=== PATIENT | male | born 1950 | race Two or more races ===

== ENCOUNTER 2023-05-22 08:00 | Inpatient (IN) | payer OTHER ==
[~2023-05-22] VITALS: Ht 167.6 cm; Wt 77.1 kg
[2023-05-22] MEDS ORDERED: VERAPAMIL ER240 MG PO (09:43)
[2023-05-22] MEDS ORDERED: VERELAN PM100 MG (09:44)
[2023-05-22 09:45] LABS: PH,URINE 7.5 (5.0-8.0); URINE APPEARANCE Clear; URINE BILIRRUBIN Negative (NEGATIVE); URINE COLOR Yellow; URINE GLUCOSE Negative (NEGATIVE); URINE LEUKOCYTE Moderate; URINE NITRATE Negative; URINE PROTEIN Negative (NEGATIVE); URINE UROBILINOGEN 0.2 E.U./dl
[2023-05-22] MEDS ORDERED: ZESTRIL5 MG (09:45)
[2023-05-22 09:49] LABS: URINE BACTERIA 277.1 uL (0.0-1933); URINE RBC 7.9 uL (0.0-20.8); URINE WBC 159.6 uL (0.0-23.2)
[2023-05-22 09:58] LABS: HEMATOCRIT 40.7 % (39.0-48.0); HEMOGLOBIN 13.8 g/dL (13-16.00); MEAN CELL VOLUME 88.1 fL (80.0-100.00); MEAN CORPUSCULAR HEMOGLOBIN 29.8 pg (27.00-32.0); MEAN CORPUSCULAR HGB CONC 33.8 g/dl (32.0-36.0); PLATELET COUNT 371 K/uL (150-450); RED BLOOD COUNT 4.62 M/uL (4.00-6.00); RED CELL DISTRIBUTION WIDTH 13.9 % (11.5-14.5)
[2023-05-22 10:13] LABS: URINE BLOOD TRACE; URINE EPITHELIAL CELLS 1.2 uL (0.0-38.8)
[2023-05-22 10:45] LABS: ALBUMIN 4.3 gm/dL (3.4-5.0); BILIRUBIN TOTAL 0.73 mg/dL (0.3-1.2); CREATININE SERUM 0.74 mg/dL (0.70-1.30); GFR 103.68; GLOBULINA 3.2 G/DL (2.4-3.5); POTASSIUM 3.74 mEq/L (3.5-5.1); TOTAL PROTEIN 7.5 gm/dL (6.4-8.2)
[2023-05-22 10:47] LABS: INR 1.04; PARTIAL THROMBOPLASTIN TIME 28.5 SECONDS (22.0-34.0); PROTHROMBIN TIME 10.9 SECONDS (9.0-11.5)
[2023-06-02] MEDS ORDERED: CEFAZOLIN SODIUM 1,000 MG VIAL ONE ×3 (10:43→18:49)
[2023-06-02] MEDS ORDERED: VANCOMYCIN HCL 1,000 MG VIAL ONE ×2 (12:37→13:11)
[2023-06-02] MEDS ORDERED: LIDOCAINE HCL 1%/Epi 20ML VIAL IJ ONE (14:04)
[2023-06-02] MEDS ORDERED: BUPIVACAINE HCL/PF 0.5% 30ML ML ONE (14:04)
[2023-06-02] MEDS ORDERED: KETOROLAC TROMETHAMINE 60 MG VIAL IM ONE ×3 (14:04→18:49)
[2023-06-02] MEDS ORDERED: TRANEXAMIC ACID 100MG/1ML (1000MG) AMPUL IV ONE ×2 (14:04→17:00)
[2023-06-02] MEDS ORDERED: VANCOMYCIN HCL 1,000 MG VIAL IR SCH (14:15)
[2023-06-02] MEDS ORDERED: TRANEXAMIC ACID 100MG/1ML (1000MG) AMPUL IV SCH ×2 (14:15)
[2023-06-02] MEDS ORDERED: KETOROLAC TROMETHAMINE 60 MG VIAL IM SCH (14:15)
[2023-06-02] MEDS ORDERED: MORPHINE SULFATE 4 MG/ML CARTRIDGE IV SCH (14:15)
[2023-06-02] MEDS ORDERED: CEFAZOLIN SODIUM 1,000 MG VIAL IV SCH ×2 (14:15→18:00)
[2023-06-02] MEDS ORDERED: BUPIVACAINE HCL/PF 0.5% 1ML IJ SCH (14:15)
[2023-06-02] MEDS ORDERED: LIDOCAINE HCL 1%/Epi 20ML VIAL IJ SCH (14:15)
[2023-06-02] MEDS ORDERED: POVIDONE-IODINE 3 EA MED..SWAB TOP ONE (15:37)
[2023-06-02] MEDS ORDERED: POVIDONE-IODINE 118 ML BOTT TOP ONE (15:37)
[2023-06-02] MEDS ORDERED: ONDANSETRON HCL 2 MG/ML VIAL IV PRN (16:30)
[2023-06-02] MEDS ORDERED: MORPHINE SULFATE 4 MG/ML CARTRIDGE IV PRN (16:30)
[2023-06-02] MEDS ORDERED: SODIUM CHLORIDE 0.45 % 1,000 ML IV SCH (16:30)
[2023-06-02] MEDS ORDERED: MORPHINE SULFATE 2 MG/ML CARTRIDGE IV NR (16:30)
[2023-06-02] MEDS ORDERED: BUPIVACAINE HCL 30 ML VIAL IJ ONE (17:00)
[2023-06-02] MEDS ORDERED: LIDOCAINE HCL/EPINEPHRINE 10MG/ML 1% 50ML IJ ONE (17:00)
[2023-06-02] MEDS ORDERED: VERAPAMIL HCL 80 MG TABLET PO SCH (17:00)
[2023-06-02] MEDS ORDERED: CEFAZOLIN SODIUM 1,000 MG VIAL IV ONE (17:00)
[2023-06-02] MEDS ORDERED: MORPHINE SULFATE 4 MG/ML VIAL IV ONE (17:00)
[2023-06-02 20:06] LABS: HEMATOCRIT 35.5 % (39.0-48.0); HEMOGLOBIN 11.9 g/dL (13-16.00); RED BLOOD COUNT 3.95 M/uL (4.00-6.00)
[2023-06-02] MEDS ORDERED: GENTAMICIN SULFATE 40 MG/ML VIAL IV SCH (21:00)
[2023-06-03 05:21] LABS: HEMATOCRIT 32.3 % (39.0-48.0); MEAN CELL VOLUME 90.3 fL (80.0-100.00); MEAN CORPUSCULAR HGB CONC 33.7 g/dl (32.0-36.0); PLATELET COUNT 244 K/uL (150-450); RED BLOOD COUNT 3.58 M/uL (4.00-6.00); RED CELL DISTRIBUTION WIDTH 13.2 % (11.5-14.5)
[2023-06-03 05:25] LABS: HEMOGLOBIN 10.9 g/dL (13-16.00); MEAN CORPUSCULAR HEMOGLOBIN 30.4 pg (27.00-32.0)
[2023-06-03] MEDS ORDERED: OxyCODONE HCL/APAP UD (PERCOCET) PO PRN (08:15)
[2023-06-03] MEDS ORDERED: RIVAROXABAN 10 MG TAB PO SCH (09:00)
[2023-06-03] MEDS ORDERED: BACITRACIN 28.35 GM OINT.TUBE TOP SCH (09:00)
[2023-06-03] MEDS ORDERED: SENNA/DOCUSATE SODIUM 1 TAB TABLET PO SCH (09:00)
[2023-06-03] MEDS ORDERED: OxyCODONE HCL ER 10MG TAB (OxyCONTIN) PO SCH (09:00)
[2023-06-03] MEDS ORDERED: LISINOPRIL 5 MG TABLET PO SCH (09:00)
[2023-06-03] MEDS ORDERED: VERAPAMIL HCL 240 MG TABLET.SA PO SCH (09:00)
[2023-06-03] MEDS ORDERED: IRON FUM,PS/FOLIC/BCOMP,C NO.9 1 CAP CAPSULE PO SCH (09:00)
[2023-06-04 05:31] LABS: HEMATOCRIT 31.4 % (39.0-48.0); HEMOGLOBIN 10.8 g/dL (13-16.00); MEAN CELL VOLUME 89.5 fL (80.0-100.00); MEAN CORPUSCULAR HEMOGLOBIN 30.7 pg (27.00-32.0); MEAN CORPUSCULAR HGB CONC 34.2 g/dl (32.0-36.0); PLATELET COUNT 248 K/uL (150-450); RED BLOOD COUNT 3.51 M/uL (4.00-6.00); RED CELL DISTRIBUTION WIDTH 13.2 % (11.5-14.5)
[2023-06-04] MEDS ORDERED: OXYC1TAB9 PO (06:39)
[2023-06-04] MEDS ORDERED: BACTRIM DS TAB1 EACH PO (06:39)
[2023-06-04] MEDS ORDERED: INTEGRA PLUS C1 EACH PO (06:39)
[2023-06-04] MEDS ORDERED: XARELTO10 MG PO (06:39)
== END 2023-06-04 13:28 | DRG 470 ==
LOC: SURH 05-29 08:00 → O/R 06-02 07:21 → SURG 06-02 18:33
PROVIDERS: ADMIT Orthopaedic Surgery Sports Medicine; ATTEND Orthopaedic Surgery Sports Medicine
PROC: 0SRB0JA Replacement of Left Hip Joint with Synthetic Substitute, Uncemented, Open Approach (ICD-10-PCS; principal; 2023-06-02 10:00)
DX: M16.12 Unilateral primary osteoarthritis, left hip (principal); I10 Essential (primary) hypertension; E03.9 Hypothyroidism, unspecified; Z20.822 Contact with and (suspected) exposure to COVID-19

== ENCOUNTER 2023-06-16 21:54 | Emergency (ER) | payer OTHER ==
[~2023-06-16] VITALS: Ht 165.1 cm; Wt 76.2 kg
[~2023-06-16 21:54] MED LIST: BACTRIM DS TAB1 EACH PO; INTEGRA PLUS C1 EACH PO; OXYC1TAB9 PO; VERAPAMIL ER240 MG PO; VERELAN PM100 MG; XARELTO10 MG PO; ZESTRIL5 MG
[2023-06-17] MEDS ORDERED: OxyCODONE HCL/APAP UD (PERCOCET) PO STA (04:09)
[2023-06-17] MEDS ORDERED: KETOROLAC TROMETHAMINE 60 MG VIAL IM STA (04:09)
[2023-06-17 05:28] LABS: HEMATOCRIT 30.6 % (39.0-48.0); HEMOGLOBIN 10.4 g/dL (13-16.00); MEAN CELL VOLUME 91.1 fL (80.0-100.00); MEAN CORPUSCULAR HEMOGLOBIN 30.9 pg (27.00-32.0); PLATELET COUNT 596 K/uL (150-450); RED BLOOD COUNT 3.36 M/uL (4.00-6.00); RED CELL DISTRIBUTION WIDTH 14.3 % (11.5-14.5)
[2023-06-17] MEDS ORDERED: LISINOPRIL40 MG PO (13:48)
[2023-06-17] MEDS ORDERED: SYNTHROID137 MCG PO (13:48)
== END 2023-06-17 07:48 | disposition home or self-care (01) ==
LOC: ER 21:54
DX: G89.18 Other acute postprocedural pain (principal); Z91.041 Radiographic dye allergy status
CPT/HCPCS: 36415; 96372; 99282; J1885

== ENCOUNTER 2023-06-17 12:10 | Inpatient (IN) | payer OTHER ==
[~2023-06-17] VITALS: Ht 167.6 cm; Wt 76.2 kg
[2023-06-17] MEDS ORDERED: LISINOPRIL40 MG PO (13:48)
[2023-06-17] MEDS ORDERED: SYNTHROID137 MCG PO (13:48)
[2023-06-17 14:56] LABS: HEMOGLOBIN 11.1 g/dL (13-16.00); MEAN CELL VOLUME 89.8 fL (80.0-100.00); MEAN CORPUSCULAR HEMOGLOBIN 30.1 pg (27.00-32.0); MEAN CORPUSCULAR HGB CONC 33.5 g/dl (32.0-36.0); RED BLOOD COUNT 3.67 M/uL (4.00-6.00)
[2023-06-17 14:57] LABS: PLATELET COUNT 681 K/uL (150-450)
[2023-06-17 15:14] LABS: CALCIUM 9.9 mg/dL (8.5-10.1); CREATININE SERUM 1.33 mg/dL (0.70-1.30); GFR 52.7; POTASSIUM 4.25 mEq/L (3.5-5.1)
[2023-06-17 15:23] LABS: INR 1.04; PARTIAL THROMBOPLASTIN TIME 28.1 SECONDS (22.0-34.0); PROTHROMBIN TIME 10.9 SECONDS (9.0-11.5)
[2023-06-17] MEDS ORDERED: VERAPAMIL HCL 80 MG TABLET PO SCH (20:14)
[2023-06-17] MEDS ORDERED: PROMETHAZINE HCL 50 MG/ML AMPUL IM PRN (20:15)
[2023-06-17] MEDS ORDERED: MEPERIDINE HCL/PF 50 MG/ML VIAL IM PRN (20:15)
[2023-06-17] MEDS ORDERED: LISINOPRIL 40 MG TABLET PO SCH (20:15)
[2023-06-17] MEDS ORDERED: 0.9 % SODIUM CHLORIDE 1,000 ML IV SCH (20:15)
[2023-06-17] MEDS ORDERED: ENOXAPARIN SODIUM 30 MG/0.3 ML SYRINGE SUBCUTANEO ONE (20:30)
[2023-06-17] MEDS ORDERED: FAMOtidine 20 MG TABLET PO SCH (21:00)
[2023-06-17 21:29] LABS: INR 1.06; PARTIAL THROMBOPLASTIN TIME 28.1 SECONDS (22.0-34.0); PROTHROMBIN TIME 11.1 SECONDS (9.0-11.5)
[2023-06-17 22:18] LABS: URINE APPEARANCE Clear; URINE BILIRRUBIN Negative (NEGATIVE); URINE BLOOD Small; URINE COLOR Yellow; URINE GLUCOSE Negative (NEGATIVE); URINE LEUKOCYTE Negative; URINE NITRATE Negative; URINE PROTEIN Negative (NEGATIVE)
[2023-06-17 22:19] LABS: URINE BACTERIA 31.4 uL (0.0-1933); URINE EPITHELIAL CELLS 2.6 uL (0.0-38.8); URINE RBC 99.4 uL (0.0-20.8); URINE WBC 5.4 uL (0.0-23.2)
[2023-06-18] MEDS ORDERED: VANCOMYCIN HCL 1,000 MG VIAL IV SCH (09:00)
[2023-06-18] MEDS ORDERED: CEFEPIME HCL 2,000 MG VIAL IV SCH (13:36)
[2023-06-18 14:49] LABS: URINE APPEARANCE Clear; URINE BILIRRUBIN Negative (NEGATIVE); URINE BLOOD Moderate; URINE COLOR Yellow; URINE GLUCOSE Negative (NEGATIVE); URINE LEUKOCYTE Small; URINE NITRATE Negative; URINE PROTEIN Negative (NEGATIVE); URINE UROBILINOGEN 0.2 E.U./dl
[2023-06-18 14:53] LABS: URINE EPITHELIAL CELLS 2.6 uL (0.0-38.8); URINE RBC 149.4 uL (0.0-20.8); URINE WBC 33.5 uL (0.0-23.2)
[2023-06-18] MEDS ORDERED: VERAPAMIL HCL 80 MG TABLET PO SCH (17:00)
[2023-06-18] MEDS ORDERED: VANCOMYCIN HCL 1,000 MG VIAL ONE ×4 (19:00→20:39)
[2023-06-18] MEDS ORDERED: BUPIVACAINE HCL/PF 0.25% 30ML VIAL InF ONE (19:00)
[2023-06-18] MEDS ORDERED: LIDOCAINE HCL 1%/Epi 20ML VIAL IJ ONE ×2 (19:00→22:15)
[2023-06-18] MEDS ORDERED: POVIDONE-IODINE 118 ML BOTT TOP ONE ×2 (19:04→21:30)
[2023-06-18] MEDS ORDERED: ISOPROPYL ALCOHOL 30 ML OUNCE TOP ONE (21:30)
[2023-06-18] MEDS ORDERED: VANCOMYCIN HCL 1,000 MG VIAL IR ONE (21:30)
[2023-06-18] MEDS ORDERED: BUPIVACAINE HCL 30 ML VIAL IJ ONE (22:00)
[2023-06-18] MEDS ORDERED: ONDANSETRON HCL 2 MG/ML VIAL IV PRN (22:15)
[2023-06-18] MEDS ORDERED: MORPHINE SULFATE 4 MG/ML VIAL IV ONE (22:15)
[2023-06-18] MEDS ORDERED: MORPHINE SULFATE 4 MG/ML VIAL IV PRN (22:15)
[2023-06-18] MEDS ORDERED: SODIUM CHLORIDE 0.45 % 1,000 ML IV SCH (22:15)
[2023-06-18 23:23] LABS: HEMATOCRIT 30.2 % (39.0-48.0); RED BLOOD COUNT 3.29 M/uL (4.00-6.00)
[2023-06-18 23:24] LABS: HEMOGLOBIN 10.1 g/dL (13-16.00)
[2023-06-19 06:07] LABS: HEMOGLOBIN 9.2 g/dL (13-16.00); MEAN CELL VOLUME 90.9 fL (80.0-100.00); MEAN CORPUSCULAR HGB CONC 34.1 g/dl (32.0-36.0); PLATELET COUNT 531 K/uL (150-450); RED BLOOD COUNT 2.97 M/uL (4.00-6.00); RED CELL DISTRIBUTION WIDTH 14.2 % (11.5-14.5)
[2023-06-19 06:46] LABS: ALBUMIN 2.7 gm/dL (3.4-5.0); BILIRUBIN TOTAL 0.73 mg/dL (0.3-1.2); CALCIUM 8.6 mg/dL (8.5-10.1); CREATININE SERUM 0.64 mg/dL (0.70-1.30); GFR 122.59; GLOBULINA 2.7 G/DL (2.4-3.5); MAGNESIUM 1.8 mg/dL (1.8-2.4); PHOSPHOROUS 3.4 mg/dL (2.5-4.9); POTASSIUM 4.59 mEq/L (3.5-5.1); TOTAL PROTEIN 5.4 gm/dL (6.4-8.2)
[2023-06-19 06:47] LABS: C-REACTIVE PROTEIN 5.09 MG/DL (0.00-0.29)
[2023-06-19] MEDS ORDERED: OxyCODONE HCL/APAP UD (PERCOCET) PO PRN (07:30)
[2023-06-19] MEDS ORDERED: SENNA/DOCUSATE SODIUM 1 TAB TABLET PO SCH (09:00)
[2023-06-19] MEDS ORDERED: BACITRACIN 28.35 GM OINT.TUBE TOP SCH (09:00)
[2023-06-19] MEDS ORDERED: IRON FUM,PS/FOLIC/BCOMP,C NO.9 1 CAP CAPSULE PO SCH (09:00)
[2023-06-19] MEDS ORDERED: OxyCODONE HCL ER 10MG TAB (OxyCONTIN) PO SCH (09:00)
[2023-06-19] MEDS ORDERED: RIVAROXABAN 10 MG TAB PO SCH (09:00)
[2023-06-19] MEDS ORDERED: LACTULOSE 20 G/30 ML BLIST.PACK PO ONE (12:15)
[2023-06-19] MEDS ORDERED: MINERAL OIL 30 ML BLIST.PACK PO ONE (12:15)
[2023-06-19] MEDS ORDERED: MAGNESIUM HYDROXIDE 30 ML BLIST.PACK PO ONE (12:15)
[2023-06-19] MEDS ORDERED: CEFTRIAXONE SODIUM 2,000 MG VIAL IV SCH (17:00)
[2023-06-20 05:39] LABS: HEMATOCRIT 25.5 % (39.0-48.0); MEAN CELL VOLUME 90.3 fL (80.0-100.00); PLATELET COUNT 495 K/uL (150-450); RED BLOOD COUNT 2.82 M/uL (4.00-6.00); RED CELL DISTRIBUTION WIDTH 14.1 % (11.5-14.5)
[2023-06-20 05:40] LABS: HEMOGLOBIN 8.7 g/dL (13-16.00); MEAN CORPUSCULAR HEMOGLOBIN 30.8 pg (27.00-32.0)
[2023-06-20 05:58] LABS: ALBUMIN 2.5 gm/dL (3.4-5.0); BILIRUBIN TOTAL 0.4 mg/dL (0.3-1.2); CALCIUM 8.5 mg/dL (8.5-10.1); CREATININE SERUM 0.56 mg/dL (0.70-1.30); GFR 143.01; GLOBULINA 2.8 G/DL (2.4-3.5); PHOSPHOROUS 2.4 mg/dL (2.5-4.9); POTASSIUM 4.3 mEq/L (3.5-5.1); TOTAL PROTEIN 5.3 gm/dL (6.4-8.2)
[2023-06-20] MEDS ORDERED: LEVOTHYROXINE SODIUM 137 MCG TABLET PO SCH (06:00)
[2023-06-20 06:15] LABS: C-REACTIVE PROTEIN 9.93 MG/DL (0.00-0.29)
[2023-06-20] MEDS ORDERED: FUROsemide 20 MG/2 ML VIAL IV SCH (08:45)
[2023-06-21] MEDS ORDERED: CIPROFLOXACIN IN 5 % DEXTROSE 400 MG/200 ML PIGGYBAG IV SCH (01:00)
[2023-06-21 02:23] LABS: URINE APPEARANCE Clear; URINE BILIRRUBIN Negative (NEGATIVE); URINE BLOOD Negative; URINE COLOR Yellow; URINE GLUCOSE Negative (NEGATIVE); URINE LEUKOCYTE Negative; URINE NITRATE Negative; URINE PROTEIN Negative (NEGATIVE)
[2023-06-21 02:54] LABS: URINE BACTERIA 8.8 uL (0.0-1933); URINE EPITHELIAL CELLS 1.5 uL (0.0-38.8); URINE RBC 5.6 uL (0.0-20.8); URINE WBC 3.8 uL (0.0-23.2)
[2023-06-21] MEDS ORDERED: LACTOBACILLUS ACIDOPHILUS 1 CAP CAP PO SCH (09:00)
[2023-06-22 03:02] LABS: HEMOGLOBIN 11.7 g/dL (13-16.00); MEAN CELL VOLUME 89.4 fL (80.0-100.00); MEAN CORPUSCULAR HEMOGLOBIN 31.5 pg (27.00-32.0); MEAN CORPUSCULAR HGB CONC 35.3 g/dl (32.0-36.0); PLATELET COUNT 443 K/uL (150-450); RED BLOOD COUNT 3.69 M/uL (4.00-6.00)
[2023-06-22] MEDS ORDERED: ZINC OXIDE 30 GM,NYSTATIN 15 GM,SILVER SULFADIAZINE 50 GM TOP SCH (09:32)
[2023-06-22] MEDS ORDERED: CHLORHEXIDINE GLUCONATE 120 ML BOTTLE TOP SCH (09:45)
[2023-06-23 15:46] LABS: HEMATOCRIT 35.3 % (39.0-48.0); HEMOGLOBIN 12.2 g/dL (13-16.00); MEAN CELL VOLUME 89.7 fL (80.0-100.00); MEAN CORPUSCULAR HGB CONC 34.5 g/dl (32.0-36.0); PLATELET COUNT 459 K/uL (150-450); RED BLOOD COUNT 3.93 M/uL (4.00-6.00); RED CELL DISTRIBUTION WIDTH 13.8 % (11.5-14.5)
[2023-06-24] MEDS ORDERED: OxyCODONE HCL/APAP UD (PERCOCET) PO PRN (06:45)
[2023-06-24 06:46] LABS: HEMATOCRIT 33.6 % (39.0-48.0); HEMOGLOBIN 11.6 g/dL (13-16.00); MEAN CELL VOLUME 88.2 fL (80.0-100.00); MEAN CORPUSCULAR HEMOGLOBIN 30.5 pg (27.00-32.0); MEAN CORPUSCULAR HGB CONC 34.6 g/dl (32.0-36.0); PLATELET COUNT 456 K/uL (150-450); RED BLOOD COUNT 3.81 M/uL (4.00-6.00)
[2023-06-24 06:48] LABS: ERYTHROCYTE SEDIMENTATION RATE 30 mm/hr
[2023-06-24 07:02] LABS: ALBUMIN 2.7 gm/dL (3.4-5.0); BILIRUBIN TOTAL 0.53 mg/dL (0.3-1.2); C-REACTIVE PROTEIN 1.16 MG/DL (0.00-0.29); CALCIUM 8.9 mg/dL (8.5-10.1); CREATININE SERUM 0.59 mg/dL (0.70-1.30); GFR 134.65; GLOBULINA 2.9 G/DL (2.4-3.5); MAGNESIUM 1.8 mg/dL (1.8-2.4); PHOSPHOROUS 3.1 mg/dL (2.5-4.9); POTASSIUM 3.58 mEq/L (3.5-5.1); TOTAL PROTEIN 5.6 gm/dL (6.4-8.2)
[2023-06-24] MEDS ORDERED: VANCOMYCIN HCL 1,000 MG in 0.9 % SODIUM CHLORIDE 250 ML IV SCH (17:00)
[2023-06-25] MEDS ORDERED: LACTULOSE 20 G/30 ML BLIST.PACK PO ONE (10:15)
[2023-06-25] MEDS ORDERED: MINERAL OIL 30 ML BLIST.PACK PO ONE (10:15)
[2023-06-25] MEDS ORDERED: MAGNESIUM HYDROXIDE 30 ML BLIST.PACK PO ONE (10:15)
[2023-06-25] MEDS ORDERED: NA PHOS,M-B/NA PHOS,DI-BA 1 BOTTLE ENEMA RECTAL ONE (16:30)
[2023-06-25] MEDS ORDERED: AMINO ACIDS/PROTEIN HYDROLYS 30 ML BLIST.PACK PO SCH (17:00)
[2023-06-25 22:04] LABS: URINE APPEARANCE Cloudy; URINE BILIRRUBIN Small (NEGATIVE); URINE BLOOD Large; URINE COLOR Red; URINE GLUCOSE Negative (NEGATIVE); URINE LEUKOCYTE Moderate; URINE NITRATE Negative
[2023-06-25 22:07] LABS: URINE BACTERIA 278.4 uL (0.0-1933); URINE EPITHELIAL CELLS 74.5 uL (0.0-38.8); URINE RBC 9982.1 uL (0.0-20.8); URINE WBC 432.7 uL (0.0-23.2)
[2023-06-25 22:20] LABS: URINE MUCUS SCANT; URINE PROTEIN 300 (NEGATIVE)
[2023-06-25 22:21] LABS: URINE CRYSTALS FEW /HPF; URINE YEAST FEW /hpf
[2023-06-26 10:10] LABS: HEMATOCRIT 32.7 % (39.0-48.0); HEMOGLOBIN 11.3 g/dL (13-16.00); MEAN CELL VOLUME 90.1 fL (80.0-100.00); MEAN CORPUSCULAR HEMOGLOBIN 31.1 pg (27.00-32.0); MEAN CORPUSCULAR HGB CONC 34.5 g/dl (32.0-36.0); PLATELET COUNT 419 K/uL (150-450); RED BLOOD COUNT 3.63 M/uL (4.00-6.00); RED CELL DISTRIBUTION WIDTH 13.9 % (11.5-14.5)
[2023-06-26 10:24] LABS: ERYTHROCYTE SEDIMENTATION RATE 19 mm/hr
[2023-06-26] MEDS ORDERED: POLYETHYLENE GLYCOL 3350 17 GM BLIST.PACK PO SCH (17:00)
[2023-06-27] MEDS ORDERED: OxyCODONE HCL/APAP UD (PERCOCET) PO PRN (01:00)
[2023-06-27] MEDS ORDERED: FLUCONAZOLE IN NACL,ISO-OSM 200 MG/100 ML PIGGYBAG IV ONE (12:45)
[2023-06-27] MEDS ORDERED: ACETAMINOPHEN 500 MG GEL..CAP PO PRN (15:30)
[2023-06-27] MEDS ORDERED: TRAMADOL HCL 50 MG TABLET PO PRN (15:30)
[2023-06-28] MEDS ORDERED: FLUCONAZOLE IN NACL,ISO-OSM 50 ML IV SCH (12:00)
[2023-06-28] MEDS ORDERED: FLUCONAZOLE IN NACL,ISO-OSM 2 MG/ML ML IV SCH (14:00)
[2023-06-29 21:22] LABS: HEMATOCRIT 34.7 % (39.0-48.0); HEMOGLOBIN 11.9 g/dL (13-16.00); MEAN CELL VOLUME 90.1 fL (80.0-100.00); MEAN CORPUSCULAR HGB CONC 34.4 g/dl (32.0-36.0); PLATELET COUNT 395 K/uL (150-450); RED BLOOD COUNT 3.85 M/uL (4.00-6.00); RED CELL DISTRIBUTION WIDTH 13.8 % (11.5-14.5)
[2023-06-29 21:26] LABS: ERYTHROCYTE SEDIMENTATION RATE 23 mm/hr
[2023-06-30] MEDS ORDERED: TRAMADOL HCL 50 MG TABLET PO PRN (07:00)
[2023-07-02] MEDS ORDERED: TRAMADOL HCL 50 MG TABLET PO PRN (23:15)
[2023-07-04] MEDS ORDERED: XARELTO10 MG PO (08:19)
[2023-07-04] MEDS ORDERED: TRAM1TAB98 PO (08:19)
[2023-07-04] MEDS ORDERED: INTEGRA PLUS C1 EACH PO (08:19)
== END 2023-07-04 12:54 | disposition home or self-care (01) | DRG 858 ==
LOC: ER 12:10 → SEC-K 21:15 → SURH 21:15
PROVIDERS: General Practice; Internal Medicine; Internal Medicine Infectious Disease; ADMIT Orthopaedic Surgery Sports Medicine; ATTEND Orthopaedic Surgery Sports Medicine
PROC: 0SBB0ZZ Excision of Left Hip Joint, Open Approach (ICD-10-PCS; principal; 2023-06-18 16:45)
PROC: 30233N1 Transfusion of Nonautologous Red Blood Cells into Peripheral Vein, Percutaneous Approach (ICD-10-PCS; 2023-06-20)
PROC: 02HV33Z Insertion of Infusion Device into Superior Vena Cava, Percutaneous Approach (ICD-10-PCS; 2023-06-30)
DX: T81.49XA Infection following a procedure, other surgical site, initial encounter (principal); B96.4 Proteus (mirabilis) (morganii) as the cause of diseases classified elsewhere; D64.9 Anemia, unspecified; I10 Essential (primary) hypertension; E03.9 Hypothyroidism, unspecified; Z20.822 Contact with and (suspected) exposure to COVID-19; N20.0 Calculus of kidney